=== PATIENT | male | born 1990 | race Caucasian/White ===

== ENCOUNTER 2016-12-01 12:47 | Emergency (ER) | payer OTHER ==
[2016-12-01 13:20] VITALS: BP 144/82; PULSE 70; RESP 18; TEMP 97.4
[2016-12-01] MEDS ORDERED: PROPARACAINE 0.5% OPHTH DROPS 15 ML BTL LEFT EYE STA (13:21)
[2016-12-01] MEDS ORDERED: TOBRAMYCIN 0.3% OPHTH DROPS 5 ML BTL LEFT EYE STA (13:21)
[2016-12-01] MEDS ORDERED: DIPH,PERTUS(ACELL)TETVAC-LF 0.5 ML VIAL IM ONE (13:33)
--- NOTE | 2016-12-01 13:39 | ED ---
Eye Problem HPI - General Chief complaint: Eye Problems Stated complaint: Eye Injury Time Seen by Provider: 12/01/16 13:21 Source: patient, RN notes reviewed Mode of arrival: ambulatory Limitations: no limitations - History of Present Illness Initial comments: 26-year-old male presents emergency Department chief complaint left eye irritation. Patient states that he actually was denied. Patient states he's unsure when his last tetanus was. Patient states that it's very irritated, red. Patient states that his senses light. He had a recent corneal abrasion it feels exactly the same. Patient denies any purulent drainage. Patient offers no other complaints. - Related Data Home Medications Medication Instructions Recorded Confirmed No Known Home Medications [No 12/01/16 12/01/16 Known Home Medications] Allergies Allergy/AdvReac Type Severity Reaction Status Date / Time No Known Allergies Allergy Verified 12/01/16 13:20 Review of Systems ROS Statement: Those systems with pertinent positive or pertinent negative responses have been documented in the HPI. ROS Other: All systems not noted in ROS Statement are negative. Past Medical History Past Medical History: No Reported History History of Any Multi-Drug Resistant Organisms: None Reported Past Surgical History: Orthopedic Surgery Past Psychological History: No Psychological Hx Reported Smoking Status: Current every day smoker Past Alcohol Use History: Occasional Past Drug Use History: None Reported General Exam General appearance: alert, in no apparent distress Head exam: Present: atraumatic, normocephalic, normal inspection Eye exam: Present: PERRL, EOMI, conjunctival injection (Left), other (2 drops of proparacaine were used to anesthetize I patient had complete relief of the symptoms. Fluorocesin dye and Wood's lamp were used to evaluate which shows a large corneal abrasion in the central region). Absent: normal appearance, scleral icterus, periorbital swelling ENT exam: Present: normal exam, normal oropharynx, mucous membranes moist, TM's normal bilaterally Neck exam: Present: normal inspection, full ROM. Absent: tenderness, meningismus, lymphadenopathy Respiratory exam: Present: normal lung sounds bilaterally. Absent: respiratory distress, wheezes, rales, rhonchi, stridor Cardiovascular Exam: Present: regular rate, normal rhythm, normal heart sounds. Absent: systolic murmur, diastolic murmur, rubs, gallop, clicks Course Vital Signs 05/15/17 13:17 Temperature 97.4 F L Pulse Rate 70 Respiratory 18 Rate Blood Pressure 144/82 O2 Sat by Pulse 99 Oximetry Medical Decision Making - Medical Decision Making 26-year-old male presented for left eye injury. Patient has a corneal abrasion. His tetanus was updated. Patient will be discharged with Tobrex eye drops. Patient has no visual changes. Patient will follow-up with ophthalmology if needed if no improvement in 48 hours. Disposition Clinical Impression: Left corneal abrasion Disposition: HOME SELF-CARE Condition: Stable Instructions: Corneal Abrasion (ED) Additional Instructions: Please return to the Emergency Department if symptoms worsen or any other concerns. Use Tobrex eyedrops 1 drop every 4 hours for 5 days. Referrals: None,Stated [Primary Care Provider] - 1-2 days Mabel Murguia MD [STAFF PHYSICIAN] - 1-2 days Time of Disposition: 13:39
== END 2016-12-01 14:00 | disposition home or self-care (01) ==
LOC: EC 12:47
DX: S05.02XA Injury of conjunctiva and corneal abrasion without foreign body, left eye, initial encounter (principal); Z23 Encounter for immunization; F17.200 Nicotine dependence, unspecified, uncomplicated; X58.XXXA Exposure to other specified factors, initial encounter
CPT/HCPCS: 90471; 90715; 99282